=== PATIENT | male | born 1965 | race Caucasian/White ===

== ENCOUNTER 2019-04-24 09:47 | Emergency (ER) | payer OTHER ==
[~2019-04-24] VITALS: Ht 185.4 cm; Wt 123.4 kg
[2019-04-24] MEDS ORDERED: FORTAMET500 MG PO (10:05)
[2019-04-24] MEDS ORDERED: COZAAR100 MG PO (10:05)
[2019-04-24] MEDS ORDERED: QUETIAPINE FUM400 M1 PO (10:06)
[2019-04-24] MEDS ORDERED: VYTORIN 10-401 EACH PO (10:06)
== END 2019-04-24 12:15 | disposition home or self-care (01) ==
LOC: ER 09:47
DX: H66.92 Otitis media, unspecified, left ear (principal)

== ENCOUNTER 2019-04-26 09:13 | Emergency (ER) | payer OTHER ==
[~2019-04-26] VITALS: Ht 185.4 cm; Wt 126.1 kg
[~2019-04-26 09:13] MED LIST: COZAAR100 MG PO; FORTAMET500 MG PO; QUETIAPINE FUM400 M1 PO; VYTORIN 10-401 EACH PO
[2019-04-26] MEDS ORDERED: TYLOPHEN500 MG PO (09:45)
[2019-04-26] MEDS ORDERED: KETOROLAC PO (09:46)
[2019-04-26] MEDS ORDERED: AMOX-CLAV PO (09:46)
== END 2019-04-26 10:41 | disposition home or self-care (01) ==
LOC: ER 09:13
DX: H66.92 Otitis media, unspecified, left ear (principal); H60.8X2 Other otitis externa, left ear

== ENCOUNTER 2019-08-15 06:17 | Emergency (ER) | payer OTHER ==
[~2019-08-15] VITALS: Ht 182.9 cm; Wt 75.3 kg
[~2019-08-15 06:17] MED LIST changes: +AMOX-CLAV PO; +KETOROLAC PO; +TYLOPHEN500 MG PO
[2019-08-15] MEDS ORDERED: ULTRAM50 MG PO (08:14)
[2019-08-15] MEDS ORDERED: CLEOCIN HCL300 MG PO (08:14)
== END 2019-08-15 09:16 | disposition home or self-care (01) ==
LOC: ER 06:17
DX: K04.7 Periapical abscess without sinus (principal)

== ENCOUNTER 2019-09-01 14:46 | Emergency (ER) | payer OTHER ==
[~2019-09-01] VITALS: Ht 182.9 cm; Wt 118.8 kg
[~2019-09-01 14:46] MED LIST changes: +CLEOCIN HCL300 MG PO; +ULTRAM50 MG PO
== END 2019-09-01 19:34 | disposition home or self-care (01) ==
LOC: ER 14:46
DX: N20.0 Calculus of kidney (principal); R10.32 Left lower quadrant pain

== ENCOUNTER 2020-05-11 05:58 | Emergency (ER) | payer OTHER ==
[~2020-05-11] VITALS: Ht 182.9 cm; Wt 120.2 kg
[2020-05-11] MEDS ORDERED: ATIVAN2 M1 PO (06:17)
[2020-05-11] MEDS ORDERED: KETO10TA2 PO (10:44)
[2020-05-11] MEDS ORDERED: VENTOLIN HFA18 GM IH (10:44)
[2020-05-11] MEDS ORDERED: NORFLEX100MG PO (10:44)
== END 2020-05-11 10:47 | disposition home or self-care (01) ==
LOC: ER 05:58
DX: R10.11 Right upper quadrant pain (principal); R05 Cough; Z03.818 Encounter for observation for suspected exposure to other biological agents ruled out

== ENCOUNTER 2020-06-22 05:46 | Emergency (ER) | payer OTHER ==
[~2020-06-22] VITALS: Ht 182.9 cm; Wt 122.9 kg
[~2020-06-22 05:46] MED LIST changes: +ATIVAN2 M1 PO; +KETO10TA2 PO; +NORFLEX100MG PO; +VENTOLIN HFA18 GM IH
== END 2020-06-22 12:08 | disposition home or self-care (01) ==
LOC: ER 05:46
DX: R10.11 Right upper quadrant pain (principal)

== ENCOUNTER 2020-07-07 11:15 | Outpatient (CLI) | payer OTHER | END 2020-07-07 11:25 | disposition home or self-care (01) | LOC: LAB 11:15 | PROVIDERS: ATTEND Radiology Diagnostic Radiology | DX: N20.0 Calculus of kidney (principal) ==

== ENCOUNTER 2020-07-08 10:17 | Outpatient (CLI) | payer OTHER | END 2020-07-08 10:25 | disposition home or self-care (01) | LOC: MRI 10:17 | PROVIDERS: ATTEND Internal Medicine Gastroenterology | DX: R10.84 Generalized abdominal pain (principal); R10.30 Lower abdominal pain, unspecified | CPT/HCPCS: 74182 ==

== ENCOUNTER 2021-03-29 05:11 | Emergency (ER) | payer OTHER ==
[~2021-03-29] VITALS: Ht 182.9 cm; Wt 131.5 kg
[2021-03-29] MEDS ORDERED: NORFLEX100MG PO (06:36)
[2021-03-29] MEDS ORDERED: KETO10TA2 PO (06:36)
== END 2021-03-29 07:29 | disposition home or self-care (01) ==
LOC: ER 05:11
DX: M54.50 Low back pain, unspecified (principal)

== ENCOUNTER 2021-04-05 07:31 | Emergency (ER) | payer OTHER ==
[~2021-04-05] VITALS: Ht 182.9 cm; Wt 129.3 kg
[2021-04-05] MEDS ORDERED: PERCOCET 5-3251 EACH PO (10:32)
== END 2021-04-05 10:41 | disposition home or self-care (01) ==
LOC: ER 07:31
DX: M19.90 Unspecified osteoarthritis, unspecified site (principal); E11.9 Type 2 diabetes mellitus without complications; Z79.84 Long term (current) use of oral hypoglycemic drugs; I10 Essential (primary) hypertension

== ENCOUNTER 2021-05-06 05:04 | Emergency (ER) | payer OTHER ==
[~2021-05-06] VITALS: Ht 193 cm; Wt 129.3 kg
[~2021-05-06 05:04] MED LIST changes: +PERCOCET 5-3251 EACH PO
[2021-05-06] MEDS ORDERED: CIPRODEX OTIC7.5 ML OT (06:37)
[2021-05-06] MEDS ORDERED: CIPRO500 MG PO (06:37)
== END 2021-05-06 06:42 | disposition home or self-care (01) ==
LOC: ER 05:04
DX: H66.90 Otitis media, unspecified, unspecified ear (principal); I10 Essential (primary) hypertension; E11.9 Type 2 diabetes mellitus without complications; Z79.84 Long term (current) use of oral hypoglycemic drugs

== ENCOUNTER 2021-06-12 08:13 | Emergency (ER) | payer OTHER ==
[~2021-06-12] VITALS: Ht 185.4 cm; Wt 131.5 kg
[~2021-06-12 08:13] MED LIST changes: +CIPRO500 MG PO; +CIPRODEX OTIC7.5 ML OT
[2021-06-12] MEDS ORDERED: BUPROPION HCL200 M1 PO (08:44)
[2021-06-12] MEDS ORDERED: ACID REDUCER20 M1 PO (08:44)
== END 2021-06-12 09:29 | disposition home or self-care (01) ==
LOC: ER 08:13
DX: M54.50 Low back pain, unspecified (principal); E11.9 Type 2 diabetes mellitus without complications; Z79.899 Other long term (current) drug therapy

== ENCOUNTER 2022-01-06 11:52 | Emergency (ER) | payer OTHER ==
[~2022-01-06] VITALS: Ht 185.4 cm; Wt 111.1 kg
[~2022-01-06 11:52] MED LIST changes: +ACID REDUCER20 M1 PO; +BUPROPION HCL200 M1 PO
== END 2022-01-06 15:39 | disposition home or self-care (01) ==
LOC: ER 11:52
DX: L02.11 Cutaneous abscess of neck (principal)

== ENCOUNTER 2022-04-17 11:00 | Emergency (ER) | payer OTHER ==
[~2022-04-17] VITALS: Ht 185.4 cm; Wt 104.3 kg
[2022-04-17] MEDS ORDERED: KETO10TA2 PO (12:34)
[2022-04-17] MEDS ORDERED: AMOX-CLAV 875-1 EACH PO (12:34)
== END 2022-04-17 13:01 | disposition home or self-care (01) ==
LOC: ER 11:00
DX: H92.01 Otalgia, right ear (principal)

== ENCOUNTER → 2022-07-04 | Emergency (ER) | payer OTHER ==
[~2022-07-04] VITALS: Ht 185.4 cm; Wt 105.2 kg
[~2022-07-04] MED LIST changes: +AMOX-CLAV 875-1 EACH PO; +BUPROPION HCL150 M1 PO; +GABAPENTIN600 MG PO; +LORAZEPAM2 MG PO; +MOUNJARO2.5 MG/0.5 SQ; +QUETIAPINE FUM400 MG PO; +ROSUVASTATIN CA10 MG PO
== END | disposition home or self-care (01) ==
LOC: ER 11:53
DX: R55 Syncope and collapse (principal); S00.93XA Contusion of unspecified part of head, initial encounter; S30.0XXA Contusion of lower back and pelvis, initial encounter; W18.39XA Other fall on same level, initial encounter; Y93.9 Activity, unspecified; Y92.018 Other place in single-family (private) house as the place of occurrence of the external cause; Y99.9 Unspecified external cause status; E11.9 Type 2 diabetes mellitus without complications; Z79.84 Long term (current) use of oral hypoglycemic drugs; Z86.59 Personal history of other mental and behavioral disorders

== ENCOUNTER → 2023-11-29 | Emergency (ER) | payer OTHER ==
[~2023-11-29] VITALS: Ht 185.4 cm; Wt 103.4 kg
[~2023-11-29] MED LIST changes: +BACLOFEN20 MG; +DIAZEPAM10 MG; +FAMCICLOVIR500 MG PO; +FLUOXETINE DR90 MG; +GABAPENTIN600 MG; +HYDROXYZIN10 MG/5 ML; +MOUNJARO15 MG/0.5 SQ; +NEURONTIN600 M1 PO; +PEPCID AC20 MG; +ZIPSOR25 MG
== END | disposition home or self-care (01) ==
LOC: ER 10:42
DX: B02.8 Zoster with other complications (principal)

== ENCOUNTER → 2025-02-09 | Emergency (ER) | payer OTHER ==
[~2025-02-09] VITALS: Ht 185.4 cm; Wt 102.1 kg
[~2025-02-09] MED LIST changes: +CEFTRIAXONE SODIUM 1,000 MG VIAL IM ONE; +KETOROLAC TROMETHAMINE 60 MG VIAL IM ONE; +MUPIROCIN15 GM TOP; +ORPHENADRINE CITRATE 30 MG/ML AMPUL IM ONE; +PEPCID AC20 MG PO; +PROBIOTIC1 EAC2 PO
[2025-02-09 14:26] VITALS: BP 113/81; O2SAT 97
== END | disposition home or self-care (01) ==
LOC: ER 14:15
DX: L08.89 Other specified local infections of the skin and subcutaneous tissue (principal); L92.3 Foreign body granuloma of the skin and subcutaneous tissue